=== PATIENT | female | born 1960 | race African-American/Black ===

== ENCOUNTER 2019-09-19 10:49 | Emergency (ER) | payer MEDICAID ==
[~2019-09-19] VITALS: Ht 180.3 cm; Wt 175.0 kg
[~2019-09-19 10:49] MED LIST: AMLO10TA4; ASPI-1158; ATEN50TA; LISI40TA4
[2019-09-19] MEDS ORDERED: TETRACAINE 0.5% OPHTH DROPS 4ML RIGHTEYE ONE (12:30)
[2019-09-19] MEDS ORDERED: FLUORESCEIN SODIUM 1MG/STRIP RIGHTEYE ONE (12:30)
[2019-09-19 12:45] VITALS: BP 168/85
== END 2019-09-19 12:46 | disposition home or self-care (01) ==
LOC: ER 10:49
DX: H10.11 Acute atopic conjunctivitis, right eye (principal); E11.9 Type 2 diabetes mellitus without complications; I10 Essential (primary) hypertension; E78.00 Pure hypercholesterolemia, unspecified; M10.9 Gout, unspecified; Z79.82 Long term (current) use of aspirin
CPT/HCPCS: 99283

== ENCOUNTER 2023-11-25 11:02 | Emergency (ER) | payer MEDICAID ==
[~2023-11-25] VITALS: Ht 167.6 cm; Wt 158.0 kg
[~2023-11-25 11:02] MED LIST changes: -ASPI-1158; +ASPI-1406; +LISI40TA13; -LISI40TA4
[2023-11-25 11:06] VITALS: PULSE 94
[2023-11-25 11:12] VITALS: BP 150/94; RESP 20; TEMP 98.8; O2SAT 99
[2023-11-25 11:53] LABS: DIFFERENTIAL COMMENT 0; HEMATOCRIT. 41.8 % (36.0-48.0); HEMOGLOBIN. 12.9 g/dL (12.0-16.0); MEAN CORPUSCULAR HGB CONC 30.8 g/dL (31.0-37.0); MEAN CORPUSCULAR VOLUME 84.4 fL (81.0-99.0); MEAN PLATELET VOLUME 8.8 fl (7.4-10.4); PLATELET 317 x1000/uL (130-400); RED BLOOD CELL COUNT 4.96 mill/uL (4.2-5.4); RED CELL DISTRIBUTION WIDTH 16.1 % (11.6-14.6); WHITE BLOOD COUNT 8.8 x1000/uL (4.5-11.0)
[2023-11-25 12:17] LABS: ALANINE AMINOTRANSFERASE 11 IU/L (10-49); ALBUMIN 3.9 g/dL (3.2-4.8); ASPARTATE AMINOTRANSFERASE 11 IU/L (<34); BILIRUBIN TOTAL 1.1 mg/dL (0.1-1.0); CALCIUM 10.1 mg/dL (8.7-10.4); CARBON DIOXIDE 24 mEq/L (21-32); CHLORIDE 104 mEq/L (98-107); CREATININE 1.7 mg/dL (0.6-1.0); GLUCOSE 167 mg/dL (70-105); POTASSIUM 4.4 mEq/L (3.5-5.1); PROTEIN TOTAL 7.5 g/dL (6.0-8.3); SODIUM 138 mEq/L (136-145); UREA NITROGEN BLOOD 33 mg/dL (9-23)
== END 2023-11-25 22:34 | disposition home or self-care (01) ==
LOC: ER 11:02
DX: R63.4 Abnormal weight loss (principal); E05.00 Thyrotoxicosis with diffuse goiter without thyrotoxic crisis or storm; N17.9 Acute kidney failure, unspecified; E11.9 Type 2 diabetes mellitus without complications; E78.00 Pure hypercholesterolemia, unspecified; I10 Essential (primary) hypertension
CPT/HCPCS: 36415; 71045; 80053; 84443; 85025; 99284